=== PATIENT | female | born 1955 ===

== ENCOUNTER 2017-12-26 13:46 | Emergency (ER) | payer OTHER ==
[2017-12-26 13:52] VITALS: RESP 16
[2017-12-26] MEDS ORDERED: DiphenhydrAMINE 50 mg/ml Inj IVP STA (14:01)
[2017-12-26] MEDS ORDERED: Famotidine 20mg/50ml 40 MG/100 ML BAG IVPB ONE (14:10)
[2017-12-26 14:45] LABS: BASO % 0.3 % (0.0-2.0); EOS # 0.1 K/uL (0.0-0.7); HEMOGLOBIN 15.9 g/dL (12.0-16.0); LYMPH # 6.2 K/uL (1.0-4.3); LYMPH % 56.6 % (20.0-40.0); MEAN CELL VOLUME 84.7 fl (81.0-99.0); MEAN CORPUSCULAR HEMOGLOBIN 29.3 pg (27.0-31.0); MEAN CORPUSCULAR HGB CONC 34.6 g/dL (33.0-37.0); MEAN PLATELET VOLUME 7.7 fl (7.2-11.7); MONO # 0.6 K/uL (0.0-0.8); MONO % 5.6 % (0.0-10.0); NEUT % 36.5 % (50.0-75.0); NRBC % 0.5 % (0.0-0.0); RBC 5.4 Mil/uL (3.80-5.20); RED CELL DISTRIBUTION WIDTH 12.9 % (11.5-14.5); WHITE BLOOD COUNT 10.9 K/uL (4.8-10.8)
[2017-12-26 14:55] LABS: CALCIUM 9.5 mg/dL (8.4-10.2)
--- NOTE | 2017-12-26 15:01 | ED PDOC ---
HPI: Allergic Reaction Time Seen by Provider: 12/26/17 13:56 Chief Complaint (Nursing): Allergic Reaction Chief Complaint (Provider): Allergic Reaction History Per: Patient History/Exam Limitations: no limitations Onset/Duration Of Symptoms: Hrs Current Symptoms Are (Timing): Still Present Additional Complaint(s): 62 y/o female with a PMHx of HTN presenting for evaluation of allergic reaction x2 hours. 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 She says she ordered lunch today, ground beef, and shortly after eating it she developed effuse itching and redness. She states she has a history of similar reactions when she eats sesame although she contacted the restaurant and they denied putting any sesame products in the food. She reports taking 50mg of Benadryl prior to arrival with no relief of symptoms. She denies any fever, chills, shortness of breath, dyspnea, facial swelling, abdominal pain, nausea, and vomiting. PMD: Dr. Adams Past Medical History Reviewed: Historical Data, Nursing Documentation, Vital Signs Vital Signs: Last Vital Signs Temp 97.4 F L 12/26/17 13:50 Pulse 121 H 12/26/17 13:50 Resp 16 12/26/17 13:50 BP 122/75 12/26/17 13:50 Pulse Ox 97 12/26/17 13:50 - Medical History PMH: HTN - Surgical History Surgical History: No Surg Hx - Family History Family History: States: Unknown Family Hx - Social History Current smoker - smoking cessation education provided: No Alcohol: None Drugs: Denies - Home Medications Home Medications: Ambulatory Orders Medication Instructions Recorded DiphenhydrAMINE [Benadryl] 50 mg PO Q6 PRN #30 cap 12/26/17 Famotidine [Pepcid] 40 mg PO DAILY #5 tablet 12/26/17 predniSONE [predniSONE Tab] 40 mg PO DAILY #10 tab 12/26/17 - Allergies Allergies/Adverse Reactions: Allergies Allergy/AdvReac Type Severity Reaction Status Date / Time sesame seed Allergy RASH Verified 12/26/17 13:50 Review of Systems ROS Statement: Except As Marked, All Systems Reviewed And Found Negative Constitutional: Negative for: Fever, Chills Respiratory: Negative for: Cough, Shortness of Breath Gastrointestinal: Negative for: Nausea, Vomiting, Abdominal Pain Skin: Positive for: Other (redness and itching) Physical Exam - Reviewed Nursing Documentation Reviewed: Yes Vital Signs Reviewed: Yes - Physical Exam Comments: GENERAL APPEARANCE: Patient is awake, alert, oriented x 3; uncomfortable, itching. SKIN: (+) diffuse erythema, (+) scattered hives. Otherwise (+) excoriations, (- ) drainage, (-) crusting of lesions is present. HENT: (-) conjunctival injection, (-) chemosis. Oropharynx: clear (-) tongue or lip swelling, (-) tonsillar exudates, (-) erythema, uvula midline. Airway: patent (-) stridor, (-) hoarseness. Mucous membranes moist. Nares: Patent (-) rhinorrhea. NECK: Supple, FROM (-) lymphadenopathy, (-) tenderness. CARDIOVASCULAR: Normal rate and rhythm. (-) murmur CHEST: (-) rales, (-) wheezing, (-) dyspnea, (-) stridor. Breath sounds equal bilaterally. Speaking in full sentences, respirations even and nonlabored. (-) accessory muscle use. ABDOMEN: Soft. (-) tenderness, (-) distention, (-) guarding NEURO: Mental status as above. Gait steady, speech clear. (-) facial asymmetry ( -) aphasia - Laboratory Results Result Diagrams: 12/26/17 14:10 12/26/17 14:10 - ECG O2 Sat by Pulse Oximetry: 97 (RA) Pulse Ox Interpretation: Normal Disposition - Clinical Impression Clinical Impression: Allergic reaction, Food allergy, Rash, Generalized pruritus - Patient ED Disposition Is Patient to be Admitted: No Counseled Patient/Family Regarding: Studies Performed, Diagnosis, Need For Followup, Rx Given - Disposition Disposition: Routine/Home Disposition Time: 15:28 Condition: STABLE Additional Instructions: FOLLOW UP WITH PMD IN 1-2 DAYS WITHOUT FAIL. RETURN TO ED WITH ANY NEW OR WORSENING SYMPTOMS. TAKE MEDICATION PRESCRIBED. Prescriptions: DiphenhydrAMINE [Benadryl] 50 mg PO Q6 PRN #30 cap PRN Reason: Allergy Symptoms Famotidine [Pepcid] 40 mg PO DAILY #5 tablet predniSONE [predniSONE Tab] 40 mg PO DAILY #10 tab Instructions: Hives, Food Allergy, Skin Rash Forms: [employer] (Macedonian), [facility] ED School/Work Excuse Print Language: GERMAN - POA Present On Arrival: None Medical Decision Making Medical Decision Makin:01 Impression: Allergic reaction Plan: --BMP --CBC --Benadryl 25mg IVP --Pepcid 40mg IVP --Solu-Medrol 125mg IVP --Reevaluation 1520 Labs reviewed and grossly unremarkable. Repeat HR: 79 Repeat Bp: 138/79 Repeat O2: 98% on RA On re-evaluation, patient reports marked improvement of symptoms, denies SOB, N/ V, chest pain, pruritis, or abdominal pain. On exam, patient remains AAOx3, in no acute distress. On exam, neck is supple, lungs CTA, cardiac RRR, abdomen is soft and non-tender, neuro exam shows no focal findings. VSS, stable for discharge. Diagnostic results d/w the patient in great detail. Dx of pruritis, allergic reaction likely to food d/w the patient. Based on history, exam and diagnostic results plan will be for discharge and outpatient follow up. Advised to follow up with primary care physician in 1-2 days without fail. Advised to take medication as prescribed. Return to the emergency room at any time for any new or worsening symptoms. Patient states she fully agrees with and understands discharge instructions. States that she agrees with the plan and disposition. Verbalized and repeated discharge instructions and plan. I have given the patient opportunity to ask any additional questions. Scribe Attestation: Documented by Shyam Cabrera, acting as a scribe for Geraldine Salas PA-C. Provider Scribe Attestation: All medical record entries made by the scribe were at my direction and personally dictated by me. I have reviewed the chart and agree that the record accurately reflects my personal performance of the history, physical exam, medical decision making, and the department course for this patient. I have also personally directed, reviewed, and agree with the discharge instructions and disposition. Results - Lab Results Lab Results: 12/26/17 12/26/17 14:10 14:10 WBC 10.9 H D RBC 5.40 H Hgb 15.9 Hct 45.8 MCV 84.7 MCH 29.3 MCHC 34.6 RDW 12.9 Plt Count 282 MPV 7.7 Neut % (Auto) 36.5 L Lymph % (Auto) 56.6 H Rankin % (Auto) 5.6 Eos % (Auto) 1.0 Baso % (Auto) 0.3 Neut # (Auto) 4.0 Lymph # (Auto) 6.2 H Rankin # (Auto) 0.6 Eos # (Auto) 0.1 Baso # (Auto) 0.0 Sodium 141 Potassium 3.7 Chloride 101 Carbon Dioxide 24 Anion Gap 20 BUN 17 Creatinine 1.2 Est GFR ( Amer) 55 Est GFR (Non-Af Amer) 46 Random Glucose 132 H Calcium 9.5
[2017-12-26 15:14] VITALS: BP 138/79; PULSE 79; TEMP 98.6
[2017-12-26 15:26] VITALS: O2SAT 97
== END 2017-12-26 16:00 | disposition home or self-care (01) ==
LOC: H.ER 13:46
DX: T78.1XXA Other adverse food reactions, not elsewhere classified, initial encounter (principal); L29.9 Pruritus, unspecified; I10 Essential (primary) hypertension
CPT/HCPCS: 80048; 85025; 96374; 96375; 99283; J1200; J2930